=== PATIENT | female | born 1950 | race Caucasian/White ===

== ENCOUNTER → 2021-02-20 15:34 | Outpatient (CLI) | payer MEDICARE, OTHER, SELFPAY ==
[2021-02-20 16:16] LABS: COVID19 -Nasal RAPID Negative (Negative)
== END ==
PROVIDERS: Visit Provider Nurse Practitioner Critical Care Medicine
DX: Z20.822 Contact with and (suspected) exposure to COVID-19 (principal)
CPT/HCPCS: 87635

== ENCOUNTER 2021-03-29 20:46 | Emergency (ER) | payer MEDICARE, OTHER, SELFPAY ==
[2021-03-29 20:57] VITALS: BP 184/81; PULSE 76; RESP 20; TEMP 36.6; O2SAT 100
--- NOTE | 2021-03-29 21:03 | DI.US.S_ITS ---
PROCEDURE: US PERIPH VENOUS LOW EXTREM RT INDICATIONS: PAIN/EDEMA, ELEVATED D-DIMER TECHNIQUE: Real-time imaging, as well as color and pulse Doppler interrogation, were performed of the lower extremity deep veins from the inguinal ligament to the popliteal fossa. COMPARISON: None. FINDINGS: The common femoral, femoral and popliteal veins are normally compressible, and free of intraluminal thrombus. Color and pulse Doppler demonstrate normal phasic intraluminal flow. There is normal augmentation response to distal compression maneuver. IMPRESSION: 1. No DVT in the right lower extremity. Dictated by: Brodie Graham M.D. on 03/29/2021 at 22:01 Approved by: Brodie Graham M.D. on 03/29/2021 at 22:02
--- NOTE | 2021-03-29 23:24 | ED_ITS ---
HPI - Extremity Problem General Chief complaint: Extremity Problem,Nontraumatic Stated complaint: possible blood clot in right leg Time Seen by Provider: 03/29/21 23:24 Source: patient Mode of arrival: Ambulatory Limitations: no limitations History of Present Illness HPI Narrative: This is a 70-year-old female comes emergency department sent for possible blood clot in her right lower extremity. Patient states she has had extremity in the right is and there has been some redness and a several cm area that has been spreading and been present for several days. Patient states she has chronic venous stasis a peripheral disease she states she has had a phlebitis about 20 years ago in 1 of her lower extremities. She had a D-dimer in outpatient and was told it was elevated and sent for DVT ultrasound patient is not anticoagulated. She does think she had some right knee pain she is following with PT it causes pain when she tries to bend at the knee and she has difficulty with this but is able to the leg. She denies any new numbness, tingling or weakness. She does not appreciate any new sudden swelling of her lower extremity. She denies fevers. She denies chest pain or for breath. Patient is medication for hypertension. Related Data Previous Rx's Medication Instructions Recorded clindamycin HCl 300 mg capsule 300 mg PO QID 7 Days #28 cap 03/29/21 Allergies Allergy/AdvReac Type Severity Reaction Status Date / Time No Known Drug Allergies Allergy Unverified 02/20/21 15:55 Review of Systems Review of Systems ROS Unobtainable: All systems reviewed & are unremarkable except as noted in HPI and below Patient History Social History Smoking Status: Former smoker Smoking Status: Former smoker Exam Narrative Exam Narrative: GENERAL: Alert and oriented x three, female in mild distress. HEENT: Head normocephalic, atraumatic, EOMI, pupils reactive, face symmetric, moist mucous membranes NECK: Supple, full range of motion CARDIOVASCULAR: Regular rate and rhythm without murmurs, rubs or gallops. RESPIRATORY: Breath sounds equal bilaterally, no wheezes rales or rhonchi. ABDOMEN: Soft, nontender. Normoactive bowel sounds all 4 quadrants. No guar ding or rebound, rigidity, no mass EXTREMITIES: Normal range of motion, no clubbing. Patient has some localized edema in the right medial calf that is about 2 and half by 4 cm with some mild and erythema. Patient states this is she does have hyperpigmentation changes of the anterior calves and thighs consistent with chronic venous stasis changes which she states are not new. No obvious or lacerations. There is slight in area but no fluctuance. Patient has sensation to light touch she range of motion. She has no tenderness on examination. She has cap refill less than 2 seconds. NEUROLOGICAL: Cranial nerves II through XII grossly intact. Moving all extremities SKIN: Warm, dry, no petechiae, no rashes or lesions other than noted above. Initial Vital Signs Initial Vital Signs: Vital Signs Temperature 97.8 F 03/29/21 20:57 Pulse Rate 76 03/29/21 20:57 Respiratory Rate 20 03/29/21 20:57 Blood Pressure 184/81 H 03/29/21 20:57 Pulse Oximetry 100 03/29/21 20:57 Course Orders Ordered: ED Orders 03/29/21 21:03 US periph venous low extrem rt Stat Discontinued Medications Clindamycin HCl (Clindamycin 150 Mg Capsule) 300 mg PO NOW ONE Stop: 03/29/21 23:43 Last Admin: 03/29/21 23:51 Dose: 300 mg Documented by: MARÍA Vital Signs Vital signs: Vital Signs - 8 hr 03/29/21 20:57 03/29/21 23:51 Temperature 97.8 F Pulse Rate 76 77 Respiratory Rate 20 18 Blood Pressure 184/81 H 182/88 H Pulse Oximetry 100 97 MDM - Extremity (Nontraumatic) Imaging Data US - DVT: Radiologist's Impression: Close Vascular Ultrasound (Signed) Amari Graham - 03/29/21 Launch?[address] [address] Ultrasound Report Signed Patient: Tawana Curtis MR#: [id number] : 1950 Acct:[id number] Age/Sex: 70 / F Date of Service: 03/29/21 Loc: ED Accession Number: [id number] ?? Procedure: US periph venous low extrem rt Ordering Provider: Charo Blake D.O. PROCEDURE:? US PERIPH VENOUS LOW EXTREM RT ? INDICATIONS:? PAIN/EDEMA, ELEVATED D-DIMER ? TECHNIQUE:? Real-time imaging, as well as color and pulse Doppler interrogation, were performed of the lower extremity deep veins from the inguinal ligament to the popliteal fossa.? ? COMPARISON:? None. ? FINDINGS:? The common femoral, femoral and popliteal veins are normally compressible, and free of intraluminal thrombus.? Color and pulse Doppler demonstrate normal phasic intraluminal flow.? There is normal augmentation response to distal compression maneuver. ? ? IMPRESSION:? ? 1. No DVT in the right lower extremity.? ? ? Dictated by: Brodie Graham M.D. on 03/29/2021 at 22:01 ? ? Approved by: Brodie Graham M.D. on 03/29/2021 at 22:02?? MDM Narrative Medical decision making narrative: This is a 70-year-old female sent for rule out DVT ultrasound for possible blood clot in her right leg. She has had knee but has had new discomfort in the calf. She appreciates some redness and fullness locally but not diffusely. Maybe some very slow swelling but nothing acutely. She is not anticoagulated she had a D-dimer that was elevated outpatient and was sent in. Patient's DVT ultrasound is negative her muscular exam is reassuring but she has some, fullne ss and erythema on the lateral calf suspicious for possible cellulitis. She states these changes are new in comparison to her chronic venous stasis changes. Patient has had a history of phlebitis remotely 20 years ago but does not have any or not a blood vessels noted on exam and none were appreciated on her ultrasound. Plan for short course of antibiotics. Warm compresses and follow up with primary care. Discharge Plan Departure Patient Disposition: Home Clinical Impression: Cellulitis of leg, right Instructions: DI for Cellulitis -- Adult Activity Restrictions/Additional Instructions: I suspect you have a local cellulitis of your calf Your ultrasound today is negative for DVT. You may continue to participate in PT. I am not familiar with any local vein specialist site your primary care help you with referral recommendations Please antibiotics until completely gone. Prescription sent to [facility] in [place]. For increasing redness, swelling or, drainage new chest pain or shortness of new, or increasing or other new or concerning symptoms. Prescriptions: New clindamycin HCl 300 mg capsule 300 mg PO QID 7 Days Qty: 28 0RF Referrals: Enrique Terry MD [Primary Care Provider] -
[2021-03-29 23:51] VITALS: BP 182/88; PULSE 77; RESP 18; O2SAT 97
[2021-03-29] MEDS: CLINDAMYCIN 150 MG CAPSULE 300 MG PO (23:51)
== END 2021-03-29 23:56 | disposition home or self-care (01) ==
PROVIDERS: Emergency Provider Emergency Medicine; Family Provider Internal Medicine; PCP Internal Medicine
DX: L03.115 Cellulitis of right lower limb (principal)
CPT/HCPCS: 93971; 99283

== ENCOUNTER 2021-04-07 10:30 | Outpatient (RCR) | payer MEDICARE, OTHER, SELFPAY ==
--- NOTE | 2021-03-23 12:00 | PT.OPPOC ---
Physical, Occupational & Speech Therapy At [facility] Current Diagnoses Unilateral primary osteoarthritis, right knee (03/23/21) Difficulty in walking, not elsewhere classified (03/23/21) Visit Care Team Role Provider Type Enrique Terry MD Family Provider Non-Staff Primary Care Provider Specialty: Internal Medicine Address: [address] [place] [address], [id number] Email: Neil Pardo MD Attending Provider Physician Referring Provider Specialty: Orthopedic Surgery Address: [address] [place] [address], [id number] Email: [email or web address] Plan Of Care PT-OP-T Assessment and Plan Start: 03/20/21 16:47 Freq: Status: Active Protocol: Document 03/23/21 11:15 AW (Rec: 03/23/21 17:22 AW [id number]) Physical Therapy Assessment Rehab Potential Rehabilitation Potential Good Evaluation Complexity Number of Personal Factors/Comorbidities 1-2 Number of Body Systems Impaired 1-2 Clinical Presentation at Evaluation Stable Impairments Impairments Balance,Functional Activities, Gait,Pain,ROM,Soft Tissue Mobility,Strength Other Concerns Barriers to Rehabilitation Chronicity of deficits and relatively sedentary lifestyles are barriers to rehab. Goals Three Impairment gait and endurance Short Term Goal (STG) Pt will walk 1000 feet or greater on 6MWT without increase in baseline pain STG Duration 4 weeks - 04/20/21 Detention Goal (LTG) Pt will walk 1200 feet or greater on 6MWT without increase in baseline pain to improve community ambulation. LTG Duration 8 weeks - 05/18/21 Two Impairment strength Short Term Goal (STG) Pt will improve right hip abduction and extension strength to equal left hip for improved gait quality. STG Duration 4 weeks - 04/20/21 Detention Goal (LTG) Pt will improve single leg stance to 10 seconds bilaterally without excessive shear as a measure of improved strength and stability in gait. LTG Duration 8 weeks - 05/18/21 One Impairment HEP Short Term Goal (STG) Pt will be independent with land-based and aquatic HEP for ROM, strength, and balance to support therapy services provided in clinic. STG Duration 4 weeks - 04/20/21 Assessment Summary Assessment Tawana attends outpatient physical therapy with complaints of chronic bilateral knee pain (right worse than left), chronic plantar fasciitis, and chronic ankle instability (left worse than right). She has history of right meniscus tear of unknown grade. She presents with right hip weakness which also likely contributes to her knee pain. She has difficulty with community ambulation including stairs and inclines due to pain. She is expected to benefit from skilled PT to improve lower extremity strength, manage her pain, and improve her ability to participate in daily activities. Chronicity of deficits may be a barrier to optimal rehab outcomes. Physical Therapy Plan Frequency and Duration Frequency of Treatment 2x/Week Duration of Treatment 8 weeks Plan of Care Start Date 03/23/21 Plan of Care End Date 05/18/21 Therapeutic Interventions Therapeutic Interventions Aquatic Therapy,Balance Training,Gait Training,Home Exercise Program,Joint Mobilizations,Manual Therapy, Neuromuscular Re-education, Self-Care/Home Management,Soft Tissue Mobilization,Taping, Therapeutic Activities, Therapeutic Exercises Modalities Cold Pack/Ice Massage,Electric Stimulation,Hot Packs Next Visit Focus/Plan Next Note Type Treatment Note Next Visit Plan Initiate hip ROM and strength as well as core facilitation in supine. Consider quad sets and SAQ vs LAQ for knee strength. Follow up on schedule for possible aquatic therapy. Plan of Care Dates Plan of Care Start Date 03/23/21 Plan of Care End Date 05/18/21 Electronically Signed by: Melva Castillo PT 03/24/21 [id number] Please Sign and Return: I have reviewed this Plan of Care and certify that the skilled therapy services above are required to meet the patient?s needs. Physician Signature Date Printed Name and Credentials Clinical Instructor Signature Printed Name and Credentials
--- NOTE | 2021-03-23 12:00 | PT.OIE ---
Current Diagnoses Unilateral primary osteoarthritis, right knee (03/23/21) Difficulty in walking, not elsewhere classified (03/23/21) Visit Care Team Role Provider Type Enrique Terry MD Family Provider Non-Staff Primary Care Provider Specialty: Internal Medicine Address: [address] [place] [address], [address] Email: Neil Pardo MD Attending Provider Physician Referring Provider Specialty: Orthopedic Surgery Address: [address] [place] [address], [address] Email: [email or web address] Physical Therapy Initial Evaluation PT-OP-A Visit Information Start: 03/20/21 16:47 Freq: Status: Active Protocol: Document 03/23/21 11:15 AW (Rec: 03/23/21 08:44 AW [id number]) Out-Patient Physical Therapy Visit Information Visit Information Visit Type Initial Evaluation Visit Start Time 10:30 Visit Stop Time 11:15 Total Visit Minutes 45 Visit Number 03/02 before KX Evaluation Information Evaluation Date 03/23/21 PT-OP-B Current Condition Start: 03/20/21 16:47 Freq: Status: Active Protocol: Document 03/23/21 11:15 AW (Rec: 03/20/21 16:49 AW [id number]) Current Condition History of Current Condition Onset Date chronic Current Complaints right knee, bilateral foot pain History of Current Condition Tawana reports bilateral knee pain for years which worsened after a fall in 2017. She seems to recall she may have torn her meniscus. She states both ankles are historically unstable but the left is worse than the right. She was prescribed a hinged AFO but she found it too uncomfortable to use and never had it adjusted or re-fabricated. She has had plantar fasciitis for many years. Her knee pain is worst when tranitioning sit to stand. She can walk around the block but it is painful. Stairs and hills aggravate her pain. Pt lives with her spouse who has been ill for several years. They move around a lot and have dealt with housing insecurity. They are moving into the basement of a home in [facility] which is owned by her nephew. Prior Treatments and Tests Pt has been seen by Dr. Pardo who referred to PT. She had aquatic PT last year and found it helpful. Future Testing and Treatments Planned None identified. PT-OP-C Subjective Start: 03/20/21 16:47 Freq: Status: Active Protocol: Document 03/23/21 11:15 AW (Rec: 03/23/21 17:10 AW [id number]) Patient Questionnaires Lower Extremity Functional Scale LEFS Score 43 LEFS Impairment 40 to 59% Impaired (Score 32- 47) OP-PT Pain Assessment Pain Assessment Grid Paper Pain Assessment Grid Completed Yes: scanned to EMR PT-OP-G Mobility & Gait Start: 03/20/21 16:47 Freq: Status: Active Protocol: Document 03/23/21 11:15 AW (Rec: 03/23/21 17:10 AW [id number]) OP Gait Assessment Gait Gait Assistance Required: Independent Comments Gait Comments Pt ambulates without assistive device. Lateral lean in ipsilateral stance phase ( right more pronounced than left). Pt lands on the lateral border of both feet, has minimal heel strike, and weak toe off bilaterally. Excessive pronation bilaterally. Pt does wear custom orthoses related to plantar fasciitis with slightly buily up heel and no forefoot portion. PT-OP-H Neuro Start: 03/20/21 16:47 Freq: Status: Active Protocol: Document 03/23/21 11:15 AW (Rec: 03/23/21 17:12 AW [id number]) Sensation Evaluation Gross Sensation Gross Sensation WNL Deep Tendon Reflex & Clonus Assessment Deep Tendon Reflex Bilateral Achilles Deep Tendon Reflex 1+ Diminished Bilateral Patellar Deep Tendon Reflex 1+ Diminished PT-OP-K Range of Motion Start: 03/20/21 16:47 Freq: Status: Active Protocol: Document 03/23/21 11:15 AW (Rec: 03/23/21 12:59 AW [id number]) Hip Goniometric Range of Motion Hip ROM Limitations Hip ROM Limitations Soft Tissue Tightness Comments Limitations include habitus ( in flexion) and soft tissue ( hamstrings) Knee Goniometric Range of Motion Knee Right Knee ROM WFL Yes Patient Position Supine Flexion Active (degrees) 113 Flexion Passive (degrees) 118 Extension Active (degrees) 3 Left Knee ROM WFL Yes Patient Position Supine Flexion Active (degrees) 115 Flexion Passive (degrees) 125 Extension Active (degrees) 3 Knee ROM Limitations Knee ROM Limitations Soft Tissue Tightness,Pain Ankle and Foot Goniometric Range of Motion Ankle and Foot bilat Ankle/Foot ROM WFL Yes PT-OP-L Special Tests Start: 03/20/21 16:47 Freq: Status: Active Protocol: Document 03/23/21 11:15 AW (Rec: 03/23/21 12:59 AW [id number]) Special Tests Hip Special Tests Scour Test Test Results negative bilaterally Knee Special Tests Apley's Compression Test Results positive right; negative left Mariama's Test Test Results positive bilaterally Comments pelvis lifts at ~85-90 deg knee flexion and pt reports tightness in proximal quads Michelle's Test Test Results negative bilaterally PT-OP-M Strength Start: 03/20/21 16:47 Freq: Status: Active Protocol: Document 03/23/21 11:15 AW (Rec: 03/23/21 12:59 AW [id number]) Hip Strength Hip Manual Muscle Testing Right Flexion (L2) 4- Good- Extension (S1) 3- Fair- Abduction 3- Fair- External Rotation 4 Good Internal Rotation 4 Good Left Flexion (L2) 4 Good Extension (S1) 3 Fair Abduction 4- Good- External Rotation 4+ Good+ Internal Rotation 4+ Good+ Knee Strength Knee Manual Muscle Testing bilat Flexion (S2) 4 Good Extension (L3) 4+ Good+ Ankle/Foot Strength Ankle and Foot Manual Muscle Testing bilat Dorsiflexion (L4) 4+ Good+ Plantarflexion (S1) 4 Good Toe Strength Toe Manual Muscle Testing Great Toe Flexion 5 Normal PT-OP-Q Treatments Start: 03/20/21 16:47 Freq: Status: Active Protocol: Document 03/23/21 11:15 AW (Rec: 03/23/21 17:18 AW [id number]) Therapeutic Exercises Supine Exercises HS stretch Supine Exercise Name HS stretch Side bilateral Equipment Used towel behind thigh Comments extra time spent educating set up, purpose, timing; HEP Self-Care/Home Management Treatment Education Patient Education Joint Protection Other Education Discussed evaluation findings and proposed POC focused on hip and knee mobility, hip strength, HEP, and gait training. Pt in agreement. Pt also interested in aquatic therapy. PT-OP-T Assessment and Plan Start: 03/20/21 16:47 Freq: Status: Active Protocol: Document 03/23/21 11:15 AW (Rec: 03/23/21 17:22 AW [id number]) Physical Therapy Assessment Rehab Potential Rehabilitation Potential Good Evaluation Complexity Number of Personal Factors/Comorbidities 1-2 Number of Body Systems Impaired 1-2 Clinical Presentation at Evaluation Stable Impairments Impairments Balance,Functional Activities, Gait,Pain,ROM,Soft Tissue Mobility,Strength Other Concerns Barriers to Rehabilitation Chronicity of deficits and relatively sedentary lifestyles are barriers to rehab. Goals Three Impairment gait and endurance Short Term Goal (STG) Pt will walk 1000 feet or greater on 6MWT without increase in baseline pain STG Duration 4 weeks - 04/20/21 Service Order Dispatcher Chief Goal (LTG) Pt will walk 1200 feet or greater on 6MWT without increase in baseline pain to improve community ambulation. LTG Duration 8 weeks - 05/18/21 Two Impairment strength Short Term Goal (STG) Pt will improve right hip abduction and extension strength to equal left hip for improved gait quality. STG Duration 4 weeks - 04/20/21 Half-Way Goal (LTG) Pt will improve single leg stance to 10 seconds bilaterally without excessive shear as a measure of improved strength and stability in gait. LTG Duration 8 weeks - 05/18/21 One Impairment HEP Short Term Goal (STG) Pt will be independent with land-based and aquatic HEP for ROM, strength, and balance to support therapy services provided in clinic. STG Duration 4 weeks - 04/20/21 Assessment Summary Assessment Tawana attends outpatient physical therapy with complaints of chronic bilateral knee pain (right worse than left), chronic plantar fasciitis, and chronic ankle instability (left worse than right). She has history of right meniscus tear of unknown grade. She presents with right hip weakness which also likely contributes to her knee pain. She has difficulty with community ambulation including stairs and inclines due to pain. She is expected to benefit from skilled PT to improve lower extremity strength, manage her pain, and improve her ability to participate in daily activities. Chronicity of deficits may be a barrier to optimal rehab outcomes. Physical Therapy Plan Frequency and Duration Frequency of Treatment 2x/Week Duration of Treatment 8 weeks Plan of Care Start Date 03/23/21 Plan of Care End Date 05/18/21 Therapeutic Interventions Therapeutic Interventions Aquatic Therapy,Balance Training,Gait Training,Home Exercise Program,Joint Mobilizations,Manual Therapy, Neuromuscular Re-education, Self-Care/Home Management,Soft Tissue Mobilization,Taping, Therapeutic Activities, Therapeutic Exercises Modalities Cold Pack/Ice Massage,Electric Stimulation,Hot Packs Next Visit Focus/Plan Next Note Type Treatment Note Next Visit Plan Initiate hip ROM and strength as well as core facilitation in supine. Consider quad sets and SAQ vs LAQ for knee strength. Follow up on schedule for possible aquatic therapy.
--- NOTE | 2021-03-29 12:29 | PT.OTN ---
Current Diagnoses Unilateral primary osteoarthritis, right knee (03/29/21) Difficulty in walking, not elsewhere classified (03/29/21) Physical Therapy Treatment Note PT-OP-A Visit Information Start: 03/20/21 16:47 Freq: Status: Active Protocol: Document 03/29/21 11:26 AW (Rec: 03/29/21 11:18 AW [id number]) Out-Patient Physical Therapy Visit Information Visit Information Visit Type Treatment Note Visit Start Time 10:30 Visit Stop Time 11:26 Total Visit Minutes 56 Visit Number 04/02 before KX Evaluation Information Evaluation Date 03/23/21 PT-OP-B Current Condition Start: 03/20/21 16:47 Freq: Status: Active Protocol: Document 03/23/21 11:15 AW (Rec: 03/20/21 16:49 AW [id number]) Current Condition History of Current Condition Onset Date chronic Current Complaints right knee, bilateral foot pain History of Current Condition Tawana reports bilateral knee pain for years which worsened after a fall in 2017. She seems to recall she may have torn her meniscus. She states both ankles are historically unstable but the left is worse than the right. She was prescribed a hinged AFO but she found it too uncomfortable to use and never had it adjusted or re-fabricated. She has had plantar fasciitis for many years. Her knee pain is worst when tranitioning sit to stand. She can walk around the block but it is painful. Stairs and hills aggravate her pain. Pt lives with her spouse who has been ill for several years. They move around a lot and have dealt with housing insecurity. They are moving into the basement of a home in [facility] which is owned by her nephew. Prior Treatments and Tests Pt has been seen by Dr. Pardo who referred to PT. She had aquatic PT last year and found it helpful. Future Testing and Treatments Planned None identified. PT-OP-C Subjective Start: 03/20/21 16:47 Freq: Status: Active Protocol: Document 03/23/21 11:15 AW (Rec: 03/23/21 17:10 AW [id number]) Patient Questionnaires Lower Extremity Functional Scale LEFS Score 43 LEFS Impairment 40 to 59% Impaired (Score 32- 47) OP-PT Pain Assessment Pain Assessment Grid Paper Pain Assessment Grid Completed Yes: scanned to EMR PT-OP-G Mobility & Gait Start: 03/20/21 16:47 Freq: Status: Active Protocol: Document 03/23/21 11:15 AW (Rec: 03/23/21 17:10 AW [id number]) OP Gait Assessment Gait Gait Assistance Required: Independent Comments Gait Comments Pt ambulates without assistive device. Lateral lean in ipsilateral stance phase ( right more pronounced than left). Pt lands on the lateral border of both feet, has minimal heel strike, and weak toe off bilaterally. Excessive pronation bilaterally. Pt does wear custom orthoses related to plantar fasciitis with slightly buily up heel and no forefoot portion. PT-OP-H Neuro Start: 03/20/21 16:47 Freq: Status: Active Protocol: Document 03/23/21 11:15 AW (Rec: 03/23/21 17:12 AW [id number]) Sensation Evaluation Gross Sensation Gross Sensation WNL Deep Tendon Reflex & Clonus Assessment Deep Tendon Reflex Bilateral Achilles Deep Tendon Reflex 1+ Diminished Bilateral Patellar Deep Tendon Reflex 1+ Diminished PT-OP-K Range of Motion Start: 03/20/21 16:47 Freq: Status: Active Protocol: Document 03/23/21 11:15 AW (Rec: 03/23/21 12:59 AW [id number]) Hip Goniometric Range of Motion Hip ROM Limitations Hip ROM Limitations Soft Tissue Tightness Comments Limitations include habitus ( in flexion) and soft tissue ( hamstrings) Knee Goniometric Range of Motion Knee Right Knee ROM WFL Yes Patient Position Supine Flexion Active (degrees) 113 Flexion Passive (degrees) 118 Extension Active (degrees) 3 Left Knee ROM WFL Yes Patient Position Supine Flexion Active (degrees) 115 Flexion Passive (degrees) 125 Extension Active (degrees) 3 Knee ROM Limitations Knee ROM Limitations Soft Tissue Tightness,Pain Ankle and Foot Goniometric Range of Motion Ankle and Foot bilat Ankle/Foot ROM WFL Yes PT-OP-L Special Tests Start: 03/20/21 16:47 Freq: Status: Active Protocol: Document 03/23/21 11:15 AW (Rec: 03/23/21 12:59 AW [id number]) Special Tests Hip Special Tests Scour Test Test Results negative bilaterally Knee Special Tests Apley's Compression Test Results positive right; negative left Mariama's Test Test Results positive bilaterally Comments pelvis lifts at ~85-90 deg knee flexion and pt reports tightness in proximal quads Michelle's Test Test Results negative bilaterally PT-OP-M Strength Start: 03/20/21 16:47 Freq: Status: Active Protocol: Document 03/23/21 11:15 AW (Rec: 03/23/21 12:59 AW [id number]) Hip Strength Hip Manual Muscle Testing Right Flexion (L2) 4- Good- Extension (S1) 3- Fair- Abduction 3- Fair- External Rotation 4 Good Internal Rotation 4 Good Left Flexion (L2) 4 Good Extension (S1) 3 Fair Abduction 4- Good- External Rotation 4+ Good+ Internal Rotation 4+ Good+ Knee Strength Knee Manual Muscle Testing bilat Flexion (S2) 4 Good Extension (L3) 4+ Good+ Ankle/Foot Strength Ankle and Foot Manual Muscle Testing bilat Dorsiflexion (L4) 4+ Good+ Plantarflexion (S1) 4 Good Toe Strength Toe Manual Muscle Testing Great Toe Flexion 5 Normal PT-OP-Q Treatments Start: 03/20/21 16:47 Freq: Status: Active Protocol: Document 03/29/21 11:26 AW (Rec: 03/29/21 11:18 AW [id number]) Cardio Equipment Recumbent Stepper (Sci-Fit) Other attempted but pt does not tolerate degree of knee flexion required Therapeutic Exercises Supine Exercises SAQ Supine Exercise Name SAQ Side right Equipment Used pillow under thigh Reps/Minutes 2 x 10 supine hip rotation Supine Exercise Name supine hip rotation - long axis and hooklying Side right Reps/Minutes 2x10 Comments HEP (long axis) heel slide Supine Exercise Name heel slide Side right Resistance AROM Reps/Minutes 2x15 Comments catch when initiating but ok once going; HEP quad sets Supine Exercise Name quad sets Side bilateral Reps/Minutes 3-5 SH x 10; 2 sets Comments cued neutral hip rotation; HEP HS stretch Comments pt reports pain with performance at home; try seated today Sitting Exercises HS stretch Sitting Exercise Name HS stretch Side bilateral Reps/Minutes 30 SH x 4 Comments cued tall sitting, toes forward; replace supine stretch for HEP Manual Therapy Treatment Soft Tissue Mobilization R quads, HS Body Location R quads, HS Mobilization Type Strumming,Sustained Pressure, Trigger Point Release Intensity/Depth Moderate Body Position Supine Comments TP noted distal lateral quad and HS, somewhat improved post STM Self-Care/Home Management Treatment Education Patient Education Home Exercise Program Other Education Scanned to EMR PT-OP-R Modalities Start: 03/20/21 16:47 Freq: Status: Active Protocol: Document 03/29/21 11:26 AW (Rec: 03/29/21 12:29 AW [id number]) Hot Pack/Cold Pack Treatment Cold Pack Location R knee Patient Position Hooklying Treatment Duration (minutes) 15 Patient Tolerance Good PT-OP-T Assessment and Plan Start: 03/20/21 16:47 Freq: Status: Active Protocol: Document 03/29/21 11:26 AW (Rec: 03/29/21 11:18 AW [id number]) Physical Therapy Assessment Goals Three Impairment gait and endurance Short Term Goal (STG) Pt will walk 1000 feet or greater on 6MWT without increase in baseline pain STG Duration 4 weeks - 04/20/21 Fish Hatchery Supervisor Goal (LTG) Pt will walk 1200 feet or greater on 6MWT without increase in baseline pain to improve community ambulation. LTG Duration 8 weeks - 05/18/21 Two Impairment strength Short Term Goal (STG) Pt will improve right hip abduction and extension strength to equal left hip for improved gait quality. STG Duration 4 weeks - 04/20/21 Fish Hatchery Supervisor Goal (LTG) Pt will improve single leg stance to 10 seconds bilaterally without excessive shear as a measure of improved strength and stability in gait. LTG Duration 8 weeks - 05/18/21 One Impairment HEP Short Term Goal (STG) Pt will be independent with land-based and aquatic HEP for ROM, strength, and balance to support therapy services provided in clinic. STG Duration 4 weeks - 04/20/21 Assessment Summary Assessment Pt's knee symptoms are highly irritable today. Initiated supine strength and AROM hip and knee. Replaced supine HS stretch with seated. Depending on response, may switch to passive extension hang next visit. Pt would certainly benefit from aquatic therapy to supplement land-based due to highly irritable nature of pain presentation. Physical Therapy Plan Frequency and Duration Frequency of Treatment 2x/Week Duration of Treatment 8 weeks Plan of Care Start Date 03/23/21 Plan of Care End Date 05/18/21 Therapeutic Interventions Therapeutic Interventions Aquatic Therapy,Balance Training,Gait Training,Home Exercise Program,Joint Mobilizations,Manual Therapy, Neuromuscular Re-education, Self-Care/Home Management,Soft Tissue Mobilization,Taping, Therapeutic Activities, Therapeutic Exercises Modalities Cold Pack/Ice Massage,Electric Stimulation,Hot Packs Next Visit Focus/Plan Next Note Type Treatment Note Next Visit Plan Assess response to HEP; consider biodex or scifit; passive extension hang during MT
--- NOTE | 2021-03-31 12:18 | PT.OTN ---
Current Diagnoses Unilateral primary osteoarthritis, right knee (03/31/21) Difficulty in walking, not elsewhere classified (03/31/21) Physical Therapy Treatment Note PT-OP-A Visit Information Start: 03/20/21 16:47 Freq: Status: Active Protocol: Document 03/31/21 10:39 AW (Rec: 03/31/21 11:19 AW [id number]) Out-Patient Physical Therapy Visit Information Visit Information Visit Type Treatment Note Visit Start Time 10:30 Visit Stop Time 11:30 Total Visit Minutes 60 Visit Number 04/30 before KX Evaluation Information Evaluation Date 03/23/21 PT-OP-B Current Condition Start: 03/20/21 16:47 Freq: Status: Active Protocol: Document 03/23/21 11:15 AW (Rec: 03/20/21 16:49 AW [id number]) Current Condition History of Current Condition Onset Date chronic Current Complaints right knee, bilateral foot pain History of Current Condition Tawana reports bilateral knee pain for years which worsened after a fall in 2017. She seems to recall she may have torn her meniscus. She states both ankles are historically unstable but the left is worse than the right. She was prescribed a hinged AFO but she found it too uncomfortable to use and never had it adjusted or re-fabricated. She has had plantar fasciitis for many years. Her knee pain is worst when tranitioning sit to stand. She can walk around the block but it is painful. Stairs and hills aggravate her pain. Pt lives with her spouse who has been ill for several years. They move around a lot and have dealt with housing insecurity. They are moving into the basement of a home in [facility] which is owned by her nephew. Prior Treatments and Tests Pt has been seen by Dr. Pardo who referred to PT. She had aquatic PT last year and found it helpful. Future Testing and Treatments Planned None identified. PT-OP-C Subjective Start: 03/20/21 16:47 Freq: Status: Active Protocol: Document 03/31/21 10:39 AW (Rec: 03/31/21 11:19 AW [id number]) OP-PT Subjective Patient Comments Patient Comments Pt went to ED on 03/29 due to elevated D-dimer result and concern for DVT. Ultrasound was negative. Doctor suspected cellulitis and started Bhumika on an antibiotic. PT-OP-G Mobility & Gait Start: 03/20/21 16:47 Freq: Status: Active Protocol: Document 03/23/21 11:15 AW (Rec: 03/23/21 17:10 AW [id number]) OP Gait Assessment Gait Gait Assistance Required: Independent Comments Gait Comments Pt ambulates without assistive device. Lateral lean in ipsilateral stance phase ( right more pronounced than left). Pt lands on the lateral border of both feet, has minimal heel strike, and weak toe off bilaterally. Excessive pronation bilaterally. Pt does wear custom orthoses related to plantar fasciitis with slightly buily up heel and no forefoot portion. PT-OP-H Neuro Start: 03/20/21 16:47 Freq: Status: Active Protocol: Document 03/23/21 11:15 AW (Rec: 03/23/21 17:12 AW [id number]) Sensation Evaluation Gross Sensation Gross Sensation WNL Deep Tendon Reflex & Clonus Assessment Deep Tendon Reflex Bilateral Achilles Deep Tendon Reflex 1+ Diminished Bilateral Patellar Deep Tendon Reflex 1+ Diminished PT-OP-K Range of Motion Start: 03/20/21 16:47 Freq: Status: Active Protocol: Document 03/23/21 11:15 AW (Rec: 03/23/21 12:59 AW [id number]) Hip Goniometric Range of Motion Hip ROM Limitations Hip ROM Limitations Soft Tissue Tightness Comments Limitations include habitus ( in flexion) and soft tissue ( hamstrings) Knee Goniometric Range of Motion Knee Right Knee ROM WFL Yes Patient Position Supine Flexion Active (degrees) 113 Flexion Passive (degrees) 118 Extension Active (degrees) 3 Left Knee ROM WFL Yes Patient Position Supine Flexion Active (degrees) 115 Flexion Passive (degrees) 125 Extension Active (degrees) 3 Knee ROM Limitations Knee ROM Limitations Soft Tissue Tightness,Pain Ankle and Foot Goniometric Range of Motion Ankle and Foot bilat Ankle/Foot ROM WFL Yes PT-OP-L Special Tests Start: 03/20/21 16:47 Freq: Status: Active Protocol: Document 03/23/21 11:15 AW (Rec: 03/23/21 12:59 AW [id number]) Special Tests Hip Special Tests Scour Test Test Results negative bilaterally Knee Special Tests Apley's Compression Test Results positive right; negative left Mariama's Test Test Results positive bilaterally Comments pelvis lifts at ~85-90 deg knee flexion and pt reports tightness in proximal quads Michelle's Test Test Results negative bilaterally PT-OP-M Strength Start: 03/20/21 16:47 Freq: Status: Active Protocol: Document 03/23/21 11:15 AW (Rec: 03/23/21 12:59 AW [id number]) Hip Strength Hip Manual Muscle Testing Right Flexion (L2) 4- Good- Extension (S1) 3- Fair- Abduction 3- Fair- External Rotation 4 Good Internal Rotation 4 Good Left Flexion (L2) 4 Good Extension (S1) 3 Fair Abduction 4- Good- External Rotation 4+ Good+ Internal Rotation 4+ Good+ Knee Strength Knee Manual Muscle Testing bilat Flexion (S2) 4 Good Extension (L3) 4+ Good+ Ankle/Foot Strength Ankle and Foot Manual Muscle Testing bilat Dorsiflexion (L4) 4+ Good+ Plantarflexion (S1) 4 Good Toe Strength Toe Manual Muscle Testing Great Toe Flexion 5 Normal PT-OP-Q Treatments Start: 03/20/21 16:47 Freq: Status: Active Protocol: Document 03/31/21 10:39 AW (Rec: 03/31/21 11:19 AW [id number]) Cardio Equipment Recumbent Elliptical ([employer]) Duration (Minutes) 6 Resistance 2 Seat Position 7 Other pt responds positively Therapeutic Exercises Supine Exercises supine clam Supine Exercise Name supine clam Side bilateral Resistance TB2 Reps/Minutes 3SH x 10 Comments cues for ppt/madelaine; HEP SAQ Supine Exercise Name SAQ Side right Equipment Used pillow under thigh Reps/Minutes 2 x 10 quad sets Supine Exercise Name quad sets Side bilateral Reps/Minutes 3-5 SH x 10; 2 sets Comments cued neutral hip rotation; HEP Standing Exercises gastroc stretch Standing Exercise Name gastroc stretch Side bilateral Equipment Used KEENA HS stretch Standing Exercise Name HS stretch Side bilateral Equipment Used 4 step Comments option for HEP Other Exercises sit to stand Other Exercise Name sit to stand Equipment Used 21 tx table; 19.5 tx table Reps/Minutes x10 from each height Comments cued weight shift and glute drive; HEP Self-Care/Home Management Treatment Education Patient Education Home Exercise Program Other Education Added supine clam and sit to stand today. Pt instructed to use as firm a chair as possible for STS. PT-OP-R Modalities Start: 03/20/21 16:47 Freq: Status: Active Protocol: Document 03/31/21 10:39 AW (Rec: 03/31/21 11:19 AW [id number]) Hot Pack/Cold Pack Treatment Cold Pack Location R knee Patient Position Hooklying Treatment Duration (minutes) 15 Patient Tolerance Good PT-OP-T Assessment and Plan Start: 03/20/21 16:47 Freq: Status: Active Protocol: Document 03/31/21 10:39 AW (Rec: 03/31/21 11:19 AW [id number]) Physical Therapy Assessment Goals Three Impairment gait and endurance Short Term Goal (STG) Pt will walk 1000 feet or greater on 6MWT without increase in baseline pain STG Duration 4 weeks - 04/20/21 Custodial Goal (LTG) Pt will walk 1200 feet or greater on 6MWT without increase in baseline pain to improve community ambulation. LTG Duration 8 weeks - 05/18/21 Two Impairment strength Short Term Goal (STG) Pt will improve right hip abduction and extension strength to equal left hip for improved gait quality. STG Duration 4 weeks - 04/20/21 Custodial Goal (LTG) Pt will improve single leg stance to 10 seconds bilaterally without excessive shear as a measure of improved strength and stability in gait. LTG Duration 8 weeks - 05/18/21 One Impairment HEP Short Term Goal (STG) Pt will be independent with land-based and aquatic HEP for ROM, strength, and balance to support therapy services provided in clinic. STG Duration 4 weeks - 04/20/21 Assessment Summary Assessment Pt's symptoms were slightly less irritable today and she tolerated Biodex with no complaint of increased pain. Attempted passive extension hang but pt found too painful after ~2 minutes. Inspected area of suspected cellulitis on distal right calf which is tight and firm although difficult to assess due to chronic skin changes from venous stasis. Pt reports improving symptoms, reduced erythema on antibiotics. Added supine clam and sit to stand for HEP. Physical Therapy Plan Frequency and Duration Frequency of Treatment 2x/Week Duration of Treatment 8 weeks Plan of Care Start Date 03/23/21 Plan of Care End Date 05/18/21 Therapeutic Interventions Therapeutic Interventions Aquatic Therapy,Balance Training,Gait Training,Home Exercise Program,Joint Mobilizations,Manual Therapy, Neuromuscular Re-education, Self-Care/Home Management,Soft Tissue Mobilization,Taping, Therapeutic Activities, Therapeutic Exercises Modalities Cold Pack/Ice Massage,Electric Stimulation,Hot Packs Next Visit Focus/Plan Next Note Type Treatment Note Next Visit Plan Assess response to HEP; warmup biodex; follow up cellulitis. Progress hip strength as able .
--- NOTE | 2021-04-07 11:40 | PT.OTN ---
Current Diagnoses Unilateral primary osteoarthritis, right knee (04/07/21) Difficulty in walking, not elsewhere classified (04/07/21) Physical Therapy Treatment Note PT-OP-A Visit Information Start: 03/20/21 16:47 Freq: Status: Active Protocol: Document 04/07/21 08:49 AW (Rec: 04/07/21 11:40 AW [id number]) Out-Patient Physical Therapy Visit Information Visit Information Visit Type Treatment Note Visit Start Time 10:30 Visit Stop Time 11:25 Total Visit Minutes 55 Visit Number 05/31 before KX Evaluation Information Evaluation Date 03/23/21 PT-OP-B Current Condition Start: 03/20/21 16:47 Freq: Status: Active Protocol: Document 03/23/21 11:15 AW (Rec: 03/20/21 16:49 AW [id number]) Current Condition History of Current Condition Onset Date chronic Current Complaints right knee, bilateral foot pain History of Current Condition Tawana reports bilateral knee pain for years which worsened after a fall in 2017. She seems to recall she may have torn her meniscus. She states both ankles are historically unstable but the left is worse than the right. She was prescribed a hinged AFO but she found it too uncomfortable to use and never had it adjusted or re-fabricated. She has had plantar fasciitis for many years. Her knee pain is worst when tranitioning sit to stand. She can walk around the block but it is painful. Stairs and hills aggravate her pain. Pt lives with her spouse who has been ill for several years. They move around a lot and have dealt with housing insecurity. They are moving into the basement of a home in [facility] which is owned by her nephew. Prior Treatments and Tests Pt has been seen by Dr. Pardo who referred to PT. She had aquatic PT last year and found it helpful. Future Testing and Treatments Planned None identified. PT-OP-C Subjective Start: 03/20/21 16:47 Freq: Status: Active Protocol: Document 04/07/21 08:49 AW (Rec: 04/07/21 11:40 AW [id number]) OP-PT Subjective Patient Comments Patient Comments Saw PCP yesterday who thought cellulitis had improved. Pt is done with antibiotics. [place] good for two days after last appointment. Overstretched and felt painful again on day three. Symptoms are quite variable PT-OP-G Mobility & Gait Start: 03/20/21 16:47 Freq: Status: Active Protocol: Document 03/23/21 11:15 AW (Rec: 03/23/21 17:10 AW [id number]) OP Gait Assessment Gait Gait Assistance Required: Independent Comments Gait Comments Pt ambulates without assistive device. Lateral lean in ipsilateral stance phase ( right more pronounced than left). Pt lands on the lateral border of both feet, has minimal heel strike, and weak toe off bilaterally. Excessive pronation bilaterally. Pt does wear custom orthoses related to plantar fasciitis with slightly buily up heel and no forefoot portion. PT-OP-H Neuro Start: 03/20/21 16:47 Freq: Status: Active Protocol: Document 03/23/21 11:15 AW (Rec: 03/23/21 17:12 AW [id number]) Sensation Evaluation Gross Sensation Gross Sensation WNL Deep Tendon Reflex & Clonus Assessment Deep Tendon Reflex Bilateral Achilles Deep Tendon Reflex 1+ Diminished Bilateral Patellar Deep Tendon Reflex 1+ Diminished PT-OP-K Range of Motion Start: 03/20/21 16:47 Freq: Status: Active Protocol: Document 03/23/21 11:15 AW (Rec: 03/23/21 12:59 AW [id number]) Hip Goniometric Range of Motion Hip ROM Limitations Hip ROM Limitations Soft Tissue Tightness Comments Limitations include habitus ( in flexion) and soft tissue ( hamstrings) Knee Goniometric Range of Motion Knee Right Knee ROM WFL Yes Patient Position Supine Flexion Active (degrees) 113 Flexion Passive (degrees) 118 Extension Active (degrees) 3 Left Knee ROM WFL Yes Patient Position Supine Flexion Active (degrees) 115 Flexion Passive (degrees) 125 Extension Active (degrees) 3 Knee ROM Limitations Knee ROM Limitations Soft Tissue Tightness,Pain Ankle and Foot Goniometric Range of Motion Ankle and Foot bilat Ankle/Foot ROM WFL Yes PT-OP-L Special Tests Start: 03/20/21 16:47 Freq: Status: Active Protocol: Document 03/23/21 11:15 AW (Rec: 03/23/21 12:59 AW [id number]) Special Tests Hip Special Tests Scour Test Test Results negative bilaterally Knee Special Tests Apley's Compression Test Results positive right; negative left Mariama's Test Test Results positive bilaterally Comments pelvis lifts at ~85-90 deg knee flexion and pt reports tightness in proximal quads Michelle's Test Test Results negative bilaterally PT-OP-M Strength Start: 03/20/21 16:47 Freq: Status: Active Protocol: Document 03/23/21 11:15 AW (Rec: 03/23/21 12:59 AW [id number]) Hip Strength Hip Manual Muscle Testing Right Flexion (L2) 4- Good- Extension (S1) 3- Fair- Abduction 3- Fair- External Rotation 4 Good Internal Rotation 4 Good Left Flexion (L2) 4 Good Extension (S1) 3 Fair Abduction 4- Good- External Rotation 4+ Good+ Internal Rotation 4+ Good+ Knee Strength Knee Manual Muscle Testing bilat Flexion (S2) 4 Good Extension (L3) 4+ Good+ Ankle/Foot Strength Ankle and Foot Manual Muscle Testing bilat Dorsiflexion (L4) 4+ Good+ Plantarflexion (S1) 4 Good Toe Strength Toe Manual Muscle Testing Great Toe Flexion 5 Normal PT-OP-Q Treatments Start: 03/20/21 16:47 Freq: Status: Active Protocol: Document 04/07/21 08:49 AW (Rec: 04/07/21 11:40 AW [id number]) Cardio Equipment Recumbent Elliptical (Autrement (HotelHotel)) Duration (Minutes) 6 Resistance 3 Seat Position 8 Other good feedback, smooth movement Therapeutic Exercises Supine Exercises bridge Supine Exercise Name bridge Reps/Minutes x12 Comments HEP supine hip rotation Supine Exercise Name supine hip rotation - long axis and hooklying Comments reviewed for HEP; advised avoiding end range IR which produced pain quad sets Supine Exercise Name quad sets - unable to perform SLR without pain Side bilateral Reps/Minutes 3-5 SH x 10; 2 sets Comments cued neutral hip rotation; HEP Sidelying Exercises reverse clamshell Sidelying Exercise Name reverse clamshell Side bilateral clamshell Sidelying Exercise Name clamshell - pt has difficulty with band placement on her back Side bilateral Comments HEP Standing Exercises TKE Standing Exercise Name TKE Side right Resistance TB1 Comments irritated knee; dc'ed gastroc stretch Standing Exercise Name gastroc stretch Side bilateral Equipment Used KEENA HS stretch Standing Exercise Name HS stretch Side bilateral Equipment Used 4 step Comments option for HEP Other Exercises sit to stand Other Exercise Name sit to stand Equipment Used 19 tx table; 17.5 chair (by lockers) Reps/Minutes x10 from each height Comments cued weight shift and glute drive; HEP Gait Training Gait Activity SPC Description gait with SPC Device Used SPC Surface tile Treatment Focus patterning, step length, stance time Comments Educated pt on widening [place] with SPC and ability to offload painful right knee. Pt able to perform 3 point gait with SPC. Cued for equal step length and stance time. Provided pt with list of DME vendors and lenders. Self-Care/Home Management Treatment Education Patient Education Fall Risk,Home Exercise Program,Joint Protection Other Education - supine clam + bridge + SL clam PT-OP-R Modalities Start: 03/20/21 16:47 Freq: Status: Active Protocol: Document 04/07/21 08:49 AW (Rec: 04/07/21 11:40 AW [id number]) Hot Pack/Cold Pack Treatment Cold Pack Location R knee Patient Position Hooklying Treatment Duration (minutes) 15 Patient Tolerance Good Comments cold pack x 2 - behind and over knee PT-OP-T Assessment and Plan Start: 03/20/21 16:47 Freq: Status: Active Protocol: Document 04/07/21 08:49 AW (Rec: 04/07/21 11:40 AW [id number]) Physical Therapy Assessment Goals Three Impairment gait and endurance Short Term Goal (STG) Pt will walk 1000 feet or greater on 6MWT without increase in baseline pain STG Duration 4 weeks - 04/20/21 Lease Out Man Goal (LTG) Pt will walk 1200 feet or greater on 6MWT without increase in baseline pain to improve community ambulation. LTG Duration 8 weeks - 05/18/21 Two Impairment strength Short Term Goal (STG) Pt will improve right hip abduction and extension strength to equal left hip for improved gait quality. STG Duration 4 weeks - 04/20/21 Lease Out Man Goal (LTG) Pt will improve single leg stance to 10 seconds bilaterally without excessive shear as a measure of improved strength and stability in gait. LTG Duration 8 weeks - 05/18/21 One Impairment HEP Short Term Goal (STG) Pt will be independent with land-based and aquatic HEP for ROM, strength, and balance to support therapy services provided in clinic. STG Duration 4 weeks - 04/20/21 Assessment Summary Assessment Pt reports she had two good days with less pain after last tx before reverting to increased pain. Pt tolerated hip strengthening additions to HEP today. Pt continues to report clunking in right knee with terminal extension - consistent with meniscus involvement. Initiated gait training with SPC to offload painful right knee for longer distance ambulation. Provided list of DME vendors and lenders for pt's awareness. Physical Therapy Plan Frequency and Duration Frequency of Treatment 2x/Week Duration of Treatment 8 weeks Plan of Care Start Date 03/23/21 Plan of Care End Date 05/18/21 Therapeutic Interventions Therapeutic Interventions Aquatic Therapy,Balance Training,Gait Training,Home Exercise Program,Joint Mobilizations,Manual Therapy, Neuromuscular Re-education, Self-Care/Home Management,Soft Tissue Mobilization,Taping, Therapeutic Activities, Therapeutic Exercises Modalities Cold Pack/Ice Massage,Electric Stimulation,Hot Packs Next Visit Focus/Plan Next Note Type Treatment Note Next Visit Plan Assess response to HEP; warmup biodex. Progress hip strength as able. Revisit gait training with SPC
--- NOTE | 2022-03-07 12:42 | PT.OPDS ---
Current Diagnoses Unilateral primary osteoarthritis, right knee (04/07/21) Difficulty in walking, not elsewhere classified (04/07/21) Visit Care Team Role Provider Type Enrique Terry MD Family Provider Physician Primary Care Provider Specialty: Internal Medicine Address: [address] [place] [address], [id number] Email: Neil Pardo MD Attending Provider Physician Referring Provider Specialty: Orthopedics Orthopedic Surgery Address: [address] [place] [address], [id number] Email: [email or web address] Visit Number Visit Number 05/31 before KX Discharge Summary PT-OP-B Current Condition Start: 03/20/21 16:47 Freq: Status: Active Protocol: Document 03/23/21 11:15 AW (Rec: 03/20/21 16:49 AW [id number]) Current Condition History of Current Condition Onset Date chronic Current Complaints right knee, bilateral foot pain History of Current Condition Tawana reports bilateral knee pain for years which worsened after a fall in 2017. She seems to recall she may have torn her meniscus. She states both ankles are historically unstable but the left is worse than the right. She was prescribed a hinged AFO but she found it too uncomfortable to use and never had it adjusted or re-fabricated. She has had plantar fasciitis for many years. Her knee pain is worst when tranitioning sit to stand. She can walk around the block but it is painful. Stairs and hills aggravate her pain. Pt lives with her spouse who has been ill for several years. They move around a lot and have dealt with housing insecurity. They are moving into the basement of a home in [facility] which is owned by her nephew. Prior Treatments and Tests Pt has been seen by Dr. Pardo who referred to PT. She had aquatic PT last year and found it helpful. Future Testing and Treatments Planned None identified. PT-OP-C Subjective Start: 03/20/21 16:47 Freq: Status: Active Protocol: Document 04/07/21 08:49 AW (Rec: 04/07/21 11:40 AW [id number]) OP-PT Subjective Patient Comments Patient Comments Saw PCP yesterday who thought cellulitis had improved. Pt is done with antibiotics. [place] good for two days after last appointment. Overstretched and felt painful again on day three. Symptoms are quite variable PT-OP-G Mobility & Gait Start: 03/20/21 16:47 Freq: Status: Active Protocol: Document 03/23/21 11:15 AW (Rec: 03/23/21 17:10 AW [id number]) OP Gait Assessment Gait Gait Assistance Required: Independent Comments Gait Comments Pt ambulates without assistive device. Lateral lean in ipsilateral stance phase ( right more pronounced than left). Pt lands on the lateral border of both feet, has minimal heel strike, and weak toe off bilaterally. Excessive pronation bilaterally. Pt does wear custom orthoses related to plantar fasciitis with slightly buily up heel and no forefoot portion. PT-OP-H Neuro Start: 03/20/21 16:47 Freq: Status: Active Protocol: Document 03/23/21 11:15 AW (Rec: 03/23/21 17:12 AW [id number]) Sensation Evaluation Gross Sensation Gross Sensation WNL Deep Tendon Reflex & Clonus Assessment Deep Tendon Reflex Bilateral Achilles Deep Tendon Reflex 1+ Diminished Bilateral Patellar Deep Tendon Reflex 1+ Diminished PT-OP-K Range of Motion Start: 03/20/21 16:47 Freq: Status: Active Protocol: Document 03/23/21 11:15 AW (Rec: 03/23/21 12:59 AW [id number]) Hip Goniometric Range of Motion Hip ROM Limitations Hip ROM Limitations Soft Tissue Tightness Comments Limitations include habitus ( in flexion) and soft tissue ( hamstrings) Knee Goniometric Range of Motion Knee Right Knee ROM WFL Yes Patient Position Supine Flexion Active (degrees) 113 Flexion Passive (degrees) 118 Extension Active (degrees) 3 Left Knee ROM WFL Yes Patient Position Supine Flexion Active (degrees) 115 Flexion Passive (degrees) 125 Extension Active (degrees) 3 Knee ROM Limitations Knee ROM Limitations Soft Tissue Tightness,Pain Ankle and Foot Goniometric Range of Motion Ankle and Foot bilat Ankle/Foot ROM WFL Yes PT-OP-L Special Tests Start: 03/20/21 16:47 Freq: Status: Active Protocol: Document 03/23/21 11:15 AW (Rec: 03/23/21 12:59 AW [id number]) Special Tests Hip Special Tests Scour Test Test Results negative bilaterally Knee Special Tests Apley's Compression Test Results positive right; negative left Mariama's Test Test Results positive bilaterally Comments pelvis lifts at ~85-90 deg knee flexion and pt reports tightness in proximal quads Michelle's Test Test Results negative bilaterally PT-OP-M Strength Start: 03/20/21 16:47 Freq: Status: Active Protocol: Document 03/23/21 11:15 AW (Rec: 03/23/21 12:59 AW [id number]) Hip Strength Hip Manual Muscle Testing Right Flexion (L2) 4- Good- Extension (S1) 3- Fair- Abduction 3- Fair- External Rotation 4 Good Internal Rotation 4 Good Left Flexion (L2) 4 Good Extension (S1) 3 Fair Abduction 4- Good- External Rotation 4+ Good+ Internal Rotation 4+ Good+ Knee Strength Knee Manual Muscle Testing bilat Flexion (S2) 4 Good Extension (L3) 4+ Good+ Ankle/Foot Strength Ankle and Foot Manual Muscle Testing bilat Dorsiflexion (L4) 4+ Good+ Plantarflexion (S1) 4 Good Toe Strength Toe Manual Muscle Testing Great Toe Flexion 5 Normal PT-OP-T Assessment and Plan Start: 03/20/21 16:47 Freq: Status: Active Protocol: Document 03/07/22 12:41 AW (Rec: 03/07/22 12:42 AW [id number]) Physical Therapy Assessment Goals Three Impairment gait and endurance Short Term Goal (STG) Pt will walk 1000 feet or greater on 6MWT without increase in baseline pain STG Duration 4 weeks - 04/20/21 Alf Goal (LTG) Pt will walk 1200 feet or greater on 6MWT without increase in baseline pain to improve community ambulation. LTG Duration 8 weeks - 05/18/21 Two Impairment strength Short Term Goal (STG) Pt will improve right hip abduction and extension strength to equal left hip for improved gait quality. STG Duration 4 weeks - 04/20/21 Alf Goal (LTG) Pt will improve single leg stance to 10 seconds bilaterally without excessive shear as a measure of improved strength and stability in gait. LTG Duration 8 weeks - 05/18/21 One Impairment HEP Short Term Goal (STG) Pt will be independent with land-based and aquatic HEP for ROM, strength, and balance to support therapy services provided in clinic. STG Duration 4 weeks - 3/9/22 Physical Therapy Plan Discharge Physical Therapy Discharge Comments Pt has not been seen in PT since 04/07/21. Late discharge entered today for administrative purposes. Pt is discharged from this plan of care.
== END 2022-03-08 12:06 | disposition home or self-care (01) ==
LOC: PHYS 10:30
PROVIDERS: Family Provider Internal Medicine; PCP Internal Medicine; Referring Provider Orthopaedic Surgery; Visit Provider Orthopaedic Surgery
DX: M17.11 Unilateral primary osteoarthritis, right knee (principal); R26.2 Difficulty in walking, not elsewhere classified
CPT/HCPCS: 97110; 97116; 97140; 97161

== ENCOUNTER 2022-01-02 16:52 | Emergency (ER) | payer MEDICARE, OTHER, SELFPAY ==
[2022-01-02 17:03] VITALS: BP 225/96; PULSE 71; RESP 16; TEMP 37.1; O2SAT 96; BMI 45.4
--- NOTE | 2022-01-02 17:09 | DI.RAD.S_ITS ---
PROCEDURE: XR HIP W PEL IF DONE LT 2V INDICATIONS: left hip pain. TECHNIQUE: AP pelvis with lateral view(s) of the left hip(s). COMPARISON: None. FINDINGS: Bones: Both hips have mild degenerative changes with joint space narrowing and osteophytes. No fracture or dislocation. Soft tissues: The visualized bowel gas pattern is normal. No suspicious soft tissue calcifications. IMPRESSION: 1. Degenerative changes of both hips. 2. No acute abnormality. Dictated by: Adria Kaba M.D. on 01/02/2022 at 17:53 Approved by: Adria Kaba M.D. on 01/02/2022 at 17:55
[2022-01-02] MEDS: KETOROLAC 30 MG/ML VIAL IM (19:22)
[2022-01-02] MEDS: CYCLOBENZAPRINE 10 MG TABLET PO (19:22)
[2022-01-02 19:47] VITALS: BP 224/102; PULSE 86; RESP 17; O2SAT 98
--- NOTE | 2022-01-02 19:48 | PC.NURSE ---
Provider Juan informed and aware of BP of 224/102. Patient denies headache/dizziness/blurred vision or other symptoms. She states she takes her BP meds in the morning but none at night. States her BP machine at home does not work so she is unsure what her nighttime BP's normally are. Per Juan''s request I told the patient to get a functioning BP cuff so she can check it at home and to follow up with her PCP.
--- NOTE | 2022-01-02 20:01 | ED_ITS ---
HPI - Extremity Problem <Renzo Martinez PA-C - Last Filed: 01/02/22 20:06> General Chief complaint: Extremity Problem,Nontraumatic Stated complaint: Hip pain Time Seen by Provider: 01/02/22 18:57 History of Present Illness HPI Narrative: 71-year-old female with past medical history arthritis presents to the ED with 2 days of left-sided hip pain. Patient denies trauma. Patient states that the pain is worse when she is transitioning from standing to sitting. Patient is able to bear weight and walk. Patient denies numbness, tingling, weakness. Patient denies chest pain, shortness of breath. Related Data Allergies Allergy/AdvReac Type Severity Reaction Status Date / Time No Known Drug Allergies Allergy Unverified 02/20/21 15:55 Review of Systems <Renzo Martinez PA-C - Last Filed: 01/02/22 20:06> Review of Systems ROS Unobtainable: All systems reviewed & are unremarkable except as noted in HPI and below Constitutional Constitutional: Denies chills, Denies fatigue, Denies fever(s), Denies frequent falls, Denies lethargy and Denies weakness Eyes Eyes: Denies change in vision, Denies eye discharge, Denies irritation and Denies loss of vision ENT Ears, Nose, Mouth, and Throat: Denies change in voice, Denies dizziness, Denies neck pain, Denies sore throat and Denies throat swelling Cardiovascular Cardiovascular: Denies chest pain, Denies irregular heart rhythm, Denies lightheadedness, Denies palpitations, Denies dyspnea, Denies dyspnea on exertion and Denies orthopnea Respiratory Respiratory: Denies cough, Denies dyspnea, Denies dyspnea on exertion and Denies wheezing Gastrointestinal Gastrointestinal: Denies abdominal pain, Denies change in bowel habits, Denies diarrhea, Denies nausea and Denies vomiting Genitourinary Genitourinary: Denies hematuria, Denies flank pain, Denies urinary incontinence and Denies urinary urgency Musculoskeletal Musculoskeletal: Denies back pain, Denies muscle weakness, Denies neck pain, Denies numbness and Denies tingling Comments: Left-sided hip pain Integumentary/Breasts Skin/Breast: Denies pruritus, Denies erythema, Denies rash and Denies wounds Neurologic Neurologic: Denies behavioral changes, Denies confusion, Denies dizziness, Denies frequent falls, Denies loss of vision, Denies numbness, Denies tingling and Denies weakness Psychiatric Psychiatric: Denies anxiety, Denies behavioral changes, Denies confusion, Denies depression, Denies homicidal ideation and Denies suicidal ideation Endocrine Endocrine: Denies fatigue, Denies flushing and Denies palpitations Hematologic/Lymphatic Hematologic/Lymphatic: Denies easy bruising Allergic/Immunologic Allergic/Immunologic: Denies urticaria, Denies throat swelling and Denies wheezing Patient History <Renzo Martinez PA-C - Last Filed: 01/02/22 20:06> Social History Smoking Status: Former smoker Smoking Status: Former smoker alcohol intake frequency: a few times a week Substance Use Type: marijuana Exam <Renzo Martinez PA-C - Last Filed: 01/02/22 20:06> Narrative Exam Narrative: Const General:?cooperative, healthy appearing and comfortable HENOH Head:?normal to inspection Ears:?hearing grossly normal bilaterally Nose:?external nose normal Face and sinus:?normal facial exam and sinuses nontender Mouth:?oral mucosae normal Throat:?posterior oropharynx normal Eyes General:?appearance normal, both eyes and all related structures Neck Neck:?normal visual inspection and no lymphadenopathy noted Resp Effort & Inspection:?normal respiratory effort Auscultation:?clear to auscultation bilaterally Cardio Rate:?regular rate Rhythm:?regular rhythm Musculoskeletal No swelling, erythema, no tenderness to palpation. Full range of motion. Gait normal. Strength and sensation intact. Patient is neurovascularly intact. Neuro General:?patient alert, patient awake and patient oriented x3 Initial Vital Signs Initial Vital Signs: Vital Signs Temperature 98.8 F 01/02/22 17:03 Pulse Rate 71 01/02/22 17:03 Respiratory Rate 16 01/02/22 17:03 Blood Pressure 225/96 H 01/02/22 17:03 Pulse Oximetry 96 01/02/22 17:03 Oxygen Delivery Method 01/02/22 17:03 <Charo Blake DO - Last Filed: 01/13/22 11:46> Initial Vital Signs Initial Vital Signs: Vital Signs Temperature 98.8 F 01/02/22 17:03 Pulse Rate 71 01/02/22 17:03 Respiratory Rate 16 01/02/22 17:03 Blood Pressure 225/96 H 01/02/22 17:03 Pulse Oximetry 96 01/02/22 17:03 Oxygen Delivery Method 01/02/22 17:03 Course <Renzo Martinez PA-C - Last Filed: 01/02/22 20:06> Orders Ordered: Discontinued Medications Cyclobenzaprine HCl (Cyclobenzaprine 10 Mg Tablet) 10 mg PO NOW ONE Stop: 01/02/22 19:14 Last Admin: 01/02/22 19:22 Dose: 10 mg Documented By: MARCELINO Ketorolac Tromethamine (Ketorolac 30 Mg/Ml Vial) 30 mg IM NOW ONE Stop: 01/02/22 19:14 Last Admin: 01/02/22 19:22 Dose: 30 mg Documented By: MARCELINO Vital Signs Vital signs: Vital Signs - 8 hr 01/02/22 17:03 01/02/22 19:47 Temperature 98.8 F Pulse Rate 71 86 Respiratory Rate 16 17 Blood Pressure 225/96 H 224/102 H Pulse Oximetry 96 98 Oxygen Delivery Method Room Air Room Air <Charo Blake DO - Last Filed: 01/13/22 11:46> Orders Ordered: Discontinued Medications Cyclobenzaprine HCl (Cyclobenzaprine 10 Mg Tablet) 10 mg PO NOW ONE Stop: 01/02/22 19:14 Last Admin: 01/02/22 19:22 Dose: 10 mg Documented By: MARCELINO Ketorolac Tromethamine (Ketorolac 30 Mg/Ml Vial) 30 mg IM NOW ONE Stop: 01/02/22 19:14 Last Admin: 01/02/22 19:22 Dose: 30 mg Documented By: MARCELINO Vital Signs Vital signs: Vital Signs - 8 hr 01/02/22 17:03 01/02/22 19:47 Temperature 98.8 F Pulse Rate 71 86 Respiratory Rate 16 17 Blood Pressure 225/96 H 224/102 H Pulse Oximetry 96 98 Oxygen Delivery Method Room Air Room Air MDM - Extremity (Nontraumatic) <Renzo Martinez PA-C - Last Filed: 01/02/22 20:06> Imaging Data Hip x-ray: Radiologist's Impression: PROCEDURE:? XR HIP W PEL IF DONE LT 2V ? INDICATIONS:? left hip pain. ? TECHNIQUE:? AP pelvis with lateral view(s) of the left hip(s).? ? COMPARISON:? None. ? FINDINGS:? ? Bones:? Both hips have mild degenerative changes with joint space narrowing and osteophytes.? No fracture or dislocation. ? Soft tissues:? The visualized bowel gas pattern is normal.? No suspicious soft tissue calcifications.? ? ? IMPRESSION:? 1. Degenerative changes of both hips. 2. No acute abnormality.? ? Dictated by: Adria Kaba M.D. on 01/02/2022 at 17:53 ? ? Approved by: Adria Kaba M.D. on 01/02/2022 at 17:55 ? MDM Narrative Medical decision making narrative: 71-year-old female with past medical history arthritis presents to the ED with 2 days of left-sided hip pain. Concern for musculoskeletal sprain/strain versus fracture/dislocation versus arthritis. Fracture/dislodged. Patient's symptoms likely due to musculoskeletal sprain/strain versus arthritis. Will give ketorolac, Flexeril for symptoms. Recommend continuing ibuprofen, Flexeril at home. Patient's blood pressure was elevated in the ED today, patient states she usually takes her blood pressure medications in the morning. Patient is unclear as to what her blood pressure usually runs at in the evening. Recommend follow- up with PCP for further evaluation. ED return precautions were discussed with patient. Patient is verbalized understanding. Discharge Plan Departure Patient Disposition: Home Clinical Impression: Hip pain Instructions: DI for Hip Pain Activity Restrictions/Additional Instructions: You were evaluated in the ED today for left-sided hip pain. Your x-ray did not show any fractures or dislocations. Your symptoms are likely due to a musculoskeletal sprain/strain. You may continue to take ibuprofen, Flexeril for symptoms. Please follow-up with your PCP for further evaluation. Please return to the ED if you note any numbness, tingling, weakness. Referrals: Kandace Almaguer MD [Primary Care Provider] - Visit Report Forms: Patient Portal/API <Charo Blake DO - Last Filed: 01/13/22 11:46> Cosign ED Attending Teo Attestation: I was immediately available in the department for consultation. Documentation has been reviewed.
== END 2022-01-02 19:50 | disposition home or self-care (01) ==
PROVIDERS: Emergency Provider Student in an Organized Health Care Education/Training Program; Family Provider Internal Medicine; PCP Family Medicine
DX: M25.552 Pain in left hip (principal)
CPT/HCPCS: 73502; 96372; 99283; J1885

== ENCOUNTER → 2022-04-26 15:05 | Outpatient (CLI) | payer MEDICARE, OTHER, SELFPAY ==
--- NOTE | 2022-04-26 | DI.RAD.S_ITS ---
Bone Density Report Name: QIANA ART Age: 71 Sex: Female Ethnicity: White Date of : 1950 Indication: postmenopausal; screening for osteoporosis; Referring Provider: JACKI MCCABE Study: Bone densitometry was performed. Exam Date: April 26, 2022 Accession number: [id number] Bone Density: Region BMD T-score Z-score Classification AP Spine(L1, L2, L3) 1.304 2.6 4.8 Normal Femoral Neck (Left) 1.007 1.4 3.3 Normal Total Hip (Left) 1.152 1.7 3.3 Normal Femoral Neck (Right) 0.895 0.4 2.3 Normal Total Hip (Right) 1.117 1.4 3.0 Normal Total Hip Mean 1.135 1.6 3.2 Normal World Health Organization criteria for BMD impression classify patients as: Normal (T-score at or above -1.0), Osteopenia (T-score between -1.0 and -2.5), or Osteoporosis (T-score at or below -2.5). 10-year Fracture Risk: FRAX not reported because: All T-scores for Spine Total, Hip Total, Femoral Neck at or above -1.0 Impression: The patient has normal bone mass. Discussion: LOW RISK OF FRACTURE; BONE DENSITY IS WELL ABOVE THE MINIMUM DESIRABLE LEVEL AND ABOVE AVERAGE FOR AGE AND SEX AT ALL SKELETAL SITES TESTED. This person's bone density is above expected limits for age and sex. This is rarely clinically significant, but should be pursued if there are significant musculoskeletal complaints. The patient should follow a healthful lifestyle (good nutrition with adequate calcium and vitamin D, and appropriate weight-bearing exercise). Follow-Up: Consider repeating this study in 5 years or sooner if there is some new clinical indication. Reported by: DOUG MEDINA MD on 04/26/2022 2:39:00 PM.
--- NOTE | 2022-04-26 | DI.MG.S_ITS ---
BILATERAL DIGITAL SCREENING MAMMOGRAM 3D/2D WITH CAD: 04/26/2022 CLINICAL: Baseline. Routine screening. No prior exams were available for comparison. Both breasts are almost entirely fatty (category a/<25% glandular tissue). Current study was also evaluated with a Computer Aided Detection (CAD) system. No significant masses, calcifications, or other findings are seen in either breast. IMPRESSION: NEGATIVE There is no mammographic evidence of malignancy. A 1 year screening mammogram is recommended. Based on the Tyrer Cuzick model (a risk assessment model) the patient's lifetime risk is 3.0% and her 10 year risk is 2.0%. According to the ACR, ACS, and NCCN guidelines, an annual breast MRI exam along with mammogram is recommended if the patient's lifetime risk is 20% or greater. This exam was interpreted at Station ID: [id number]. NOTE: For mammograms, a report in lay terms will be sent to the patient. Approximately 15% of breast malignancies will not be visualized mammographically. In the management of a palpable breast mass, a negative mammogram must not discourage biopsy of a clinically suspicious lesion. Electronically Signed By: Adria [email or web address]/blas:04/26/2022 16:12:19 letter sent: Normal Exam ACR BI-RADS Category 1: Negative [id number]
== END ==
PROVIDERS: Family Provider Internal Medicine; PCP Family Medicine; Referring Provider Family Medicine; Visit Provider Family Medicine
DX: Z12.31 Encounter for screening mammogram for malignant neoplasm of breast (principal); Z78.0 Asymptomatic menopausal state; Z13.820 Encounter for screening for osteoporosis
CPT/HCPCS: 77063; 77067; 77080